=== PATIENT | female | born 1995 | race Hispanic/Latino ===

== ENCOUNTER 2025-03-02 07:05 | Emergency (ER) | payer SELFPAY ==
[2025-03-02] MEDS ORDERED: predniSONE 20 MG TAB ONE (07:50)
[2025-03-02] MEDS ORDERED: Famotidine 20 MG TAB ONE (07:50)
== END 2025-03-02 08:10 | disposition home or self-care (01) ==
LOC: NAV ERS 07:05
DX: T78.40XA Allergy, unspecified, initial encounter (principal)
CPT/HCPCS: 99283; J7512